=== PATIENT | male | born 1995 | race Asian ===

== ENCOUNTER 2021-05-07 00:58 | Emergency (ER) | payer OTHER ==
[~2021-05-07] VITALS: Ht 167.6 cm; Wt 81.2 kg
[2021-05-07 01:06] VITALS: BP 161/98
--- NOTE | 2021-05-07 02:40 | NUR ---
TO BED AMBULATORY
--- NOTE | 2021-05-07 02:50 | NUR ---
PT. IS A 25 Y/O MALE THAT CAME INTO ED WITH C/O OF RIGHT INDEX FINGER LACERATION. PT. STATES HE WAS USING A DICER TO CUT WATERMELONS AT WORK AROUND 4PM WHEN HE "DICED HIS FINGER." PT. RATES PAIN 0/10 ON THE PAIN SCALE AT THIS TIME. PT. DESCRIBED PAIN "THROBBING PAIN." DENIES N/V/D; SKIN IS PINK/WARM/DRY; AAOX4 WITH EVEN AND STEADY GAIT; HR EVEN AND REGULAR; PT DENIES ANY FEVER, CP, SOB, OR COUGH AT THIS TIME; VSS; PATIENT POSITIONED FOR COMFORT; HOB ELEVATED; BEDRAILS UP X2; BED DOWN. ER MD MADE AWARE OF PT STATUS. PMH: DENIES ALLERGIES: NKA
[2021-05-07] MEDS ORDERED: BACITRACIN OINT 500 UNITS/GM PKT TP ONE ×2 (03:09→03:10)
[2021-05-07] MEDS ORDERED: MUPI2CRE22 TP (03:22)
--- NOTE | 2021-05-07 03:28 | NUR ---
PT WOUND COVERED WITH NON ADHERENT DRESSING AND WRAPPED WITH COFLEX TAPE AFTER BACITRACIN APPLIED. FINGER FROG SPLINT APPLIED PER MD ORDER
[2021-05-07 03:35] VITALS: BP 132/78
--- NOTE | 2021-05-07 03:35 | NUR ---
Patient discharged with v/s stable. Written and verbal after care instructions given and explained. Patient alert, oriented and verbalized understanding of instructions. Ambulatory with steady gait. All questions addressed prior to discharge. ID band removed. Patient advised to follow up with PMD. Rx of MUPIROCIN given. Patient educated on indication of medication including possible reaction and side effects. Opportunity to ask questions provided and answered.
== END 2021-05-07 03:35 | disposition home or self-care (01) ==
LOC: MED 00:58
DX: S61.200A Unspecified open wound of right index finger without damage to nail, initial encounter (principal); X58.XXXA Exposure to other specified factors, initial encounter; Y93.89 Activity, other specified; Y92.89 Other specified places as the place of occurrence of the external cause; Y99.8 Other external cause status
CPT/HCPCS: 99283